=== PATIENT | female | born 1995 | race African-American/Black ===

== ENCOUNTER 2016-12-03 09:32 | Emergency (ER) | payer SELFPAY ==
[~2016-12-03] VITALS: Ht 157.5 cm; Wt 46.7 kg
[2016-12-03] MEDS ORDERED: Famotidine 20 MG/ 2ML VIAL IVP ONE (10:30)
[2016-12-03 10:51] LABS: BASOPHILS % (AUTO) 0.7 % (0.0-2.0); EOSINOPHILS % (AUTO) 0.2 % (0.0-3.0); LYMPHOCYTES % (AUTO) 8.6 % (20.0-45.0); MEAN CORPUSCULAR HEMOGLOBIN 30.2 PG (27.0-31.0); MEAN CORPUSCULAR HGB CONC 35.4 G/DL (32.0-36.0); MEAN CORPUSCULAR VOLUME 85 FL (80-99); MONOCYTES % (AUTO) 12.3 % (1.0-10.0); NEUTROPHILS % (AUTO) 78.2 % (45.0-75.0); PLATELET COUNT 224 K/UL (150-450); RED BLOOD COUNT 4.09 M/UL (4.20-5.40); RED CELL DISTRIBUTION WIDTH 11.4 % (11.6-14.8); WHITE BLOOD COUNT 4.6 K/UL (4.8-10.8)
[2016-12-03 10:54] LABS: APPEARANCE,URINE SLIGHTLY CLOUDY; KETONES,URINE 4+ (NEGATIVE); LEUKOCYTE ESTERASE ,URINE NEGATIVE (NEGATIVE); NITRITE,URINE NEGATIVE (NEGATIVE); PH,URINE 6 (4.5-8.0); PROTEIN,URINE 2+ (NEGATIVE); UROBILINOGEN,URINE NORMAL MG/DL (0.0-1.0)
[2016-12-03 10:58] LABS: BACTERIA,URINE FEW /HPF; SQUAMOUS EPITHELIAL CELL,UR MANY /LPF (NONE/OCC)
[2016-12-03 10:59] LABS: ALANINE AMINOTRANSFERASE 96 U/L (3-33); ALBUMIN/GLOBULIN RATIO 1.5 (1.0-2.7); ANION GAP 17 (5-15); ASPARTATE AMINO TRANSFERASE 70 U/L (5-40); CALCIUM 9.6 mg/dL (8.6-10.2); CARBON DIOXIDE 23 mEQ/L (20-30); CHLORIDE 94 mEQ/L (98-107); CREATININE 0.5 mg/dL (0.5-0.9); GLOMERULAR FILTRATION RATE > 60 mL/min (>60); HEMOLYSIS 3; LIPASE 17 U/L (< 60); MUCUS,URINE MODERATE /LPF (NONE/OCC); POTASSIUM 3.2 mEQ/L (3.4-4.9); SODIUM 134 mEQ/L (135-145); TOTAL PROTEIN 7.2 g/dL (6.6-8.7)
--- NOTE | 2016-12-03 11:45 | Emergency Room Report ---
History of Present Illness General Chief Complaint: Nausea, Vomiting, and Diarrhea Source: Patient Present Illness HPI 21YOF ~9 weeks by LMP presents with nausea/vomiting and abd pain. Denies vaginal cramping, bleeding. Denies diarrhea, fever/chills, sick contacts , urinary complaints. Previous spontaneous "Early on." Patient had sono 2 days ago, was "normal." Was given vitamin B6 at the time for nausea but states it made her vomit Allergies: Coded Allergies: No Known Allergies (Unverified , 12/03/16) Patient History Past Medical History: none Past Surgical History: none Pertinent Family History: none Social History: Denies: alcohol use, drug use, smoking Last Menstrual Period: 09/26/16 Now: Yes - 9 weeks : 2 Para: 0 Immunizations: UTD Reviewed Nursing Documentation: PMH: Agreed, PSxH: Agreed Nursing Documentation-PMH Past Medical History: No Stated History Review of Systems All Other Systems: negative except mentioned in HPI Physical Exam Vital Signs Date Time Temp Pulse Resp B/P Pulse Ox O2 Delivery O2 Flow Rate FiO2 12/03/16 09:49 97.9 97 16 104/59 98 Room Air Sp02 EP Interpretation: reviewed, normal General Appearance: normal inspection, well appearing, no apparent distress, alert, GCS 15, non-toxic, other - laughing with partner bedside Head: normocephalic, atraumatic Eyes: bilateral eye EOMI, bilateral eye PERRL ENT: normal ENT inspection, hearing grossly normal, normal voice Neck: normal inspection, full range of motion, supple, no bony tend Respiratory: normal inspection, lungs clear, normal breath sounds, no respiratory distress, no retraction, no wheezing Cardiovascular #1: regular rate, rhythm, no edema Gastrointestinal: normal inspection, normal bowel sounds, non tender, soft, no guarding, no hernia Genitourinary: no CVA tenderness Musculoskeletal: normal inspection, back normal, normal range of motion, Luis' s Sign negative Neurologic: normal inspection, alert, responsive, speech normal Psychiatric: normal inspection Skin: normal inspection Lymphatic: normal inspection Medical Decision Making Diagnostic Impression: Primary Impression: Nausea, vomiting, and diarrhea Additional Impressions: Marijuana abuse Qualified Codes: Z3A.09 - 9 weeks gestation of ER Course Nausea/vomiting/pain better after treatment VSS. Afebrile. No focal abd/pelvic ttp on serial exam Labs: No leuks. H&h stable. Urine preg positive Mild hypoK - advised to eat potassium rich foods today Utox + for marijuana - advised TO STOP smoking MJ while Advised OB followup as scheduled Last Vital Signs Date Time Temp Pulse Resp B/P Pulse Ox O2 Delivery O2 Flow Rate FiO2 12/03/16 09:49 97.9 97 16 104/59 98 Room Air Status: improved Disposition: HOME, SELF-CARE Referrals: NON PHYSICIAN (PCP) LUCRECIA HENRY M.D. December 03, 2016 11:45
[2016-12-03 12:08] VITALS: BP 110/62
[2016-12-03 12:10] VITALS: BP 110/62
== END 2016-12-03 12:10 | disposition home or self-care (01) ==
LOC: EMR 11:05
DX: O26.891 Other specified pregnancy related conditions, first trimester (principal); R11.2 Nausea with vomiting, unspecified; R19.7 Diarrhea, unspecified; F12.10 Cannabis abuse, uncomplicated; Z3A.09 9 weeks gestation of pregnancy; E87.6 Hypokalemia; R10.9 Unspecified abdominal pain
CPT/HCPCS: 36415; 80053; 80300; 81003; 81025; 83690; 85025; 96360; 96374; 96375; 99284; J2405; S0028

== ENCOUNTER 2016-12-26 22:04 | Emergency (ER) | payer SELFPAY ==
[~2016-12-26] VITALS: Ht 160 cm; Wt 46.7 kg
[2016-12-26] MEDS ORDERED: PRENATAL VITAM1 EACH PO (22:15)
[2016-12-26 22:58] LABS: APPEARANCE,URINE CLEAR; KETONES,URINE NEGATIVE (NEGATIVE); LEUKOCYTE ESTERASE ,URINE NEGATIVE (NEGATIVE); NITRITE,URINE NEGATIVE (NEGATIVE); PH,URINE 6 (4.5-8.0); PROTEIN,URINE NEGATIVE (NEGATIVE); UROBILINOGEN,URINE NORMAL MG/DL (0.0-1.0)
[2016-12-26 23:02] LABS: BASOPHILS % (AUTO) 0.7 % (0.0-2.0); EOSINOPHILS % (AUTO) 1.7 % (0.0-3.0); LYMPHOCYTES % (AUTO) 25.2 % (20.0-45.0); MEAN CORPUSCULAR HEMOGLOBIN 32.4 PG (27.0-31.0); MEAN CORPUSCULAR HGB CONC 37.1 G/DL (32.0-36.0); MEAN CORPUSCULAR VOLUME 87 FL (80-99); MEAN PLATELET VOLUME 8.1 FL (6.5-10.1); MONOCYTES % (AUTO) 5.7 % (1.0-10.0); NEUTROPHILS % (AUTO) 66.7 % (45.0-75.0); PLATELET COUNT 186 K/UL (150-450); RED CELL DISTRIBUTION WIDTH 12.2 % (11.6-14.8); WHITE BLOOD COUNT 8.7 K/UL (4.8-10.8)
[2016-12-26 23:09] LABS: SQUAMOUS EPITHELIAL CELL,UR OCCASIONAL /LPF (NONE/OCC); WBC,URINE 0-2 /HPF (0 - 2)
[2016-12-26 23:23] LABS: ALANINE AMINOTRANSFERASE 72 U/L (3-33); ALBUMIN/GLOBULIN RATIO 1.5 (1.0-2.7); ANION GAP 18 (5-15); ASPARTATE AMINO TRANSFERASE 42 U/L (5-40); CALCIUM 9.7 mg/dL (8.6-10.2); CARBON DIOXIDE 21 mEQ/L (20-30); CHLORIDE 97 mEQ/L (98-107); CREATININE 0.4 mg/dL (0.5-0.9); GLOMERULAR FILTRATION RATE > 60 mL/min (>60); HEMOLYSIS 5; LIPASE 36 U/L (< 60); POTASSIUM 3.7 mEQ/L (3.4-4.9); SODIUM 136 mEQ/L (135-145)
--- NOTE | 2016-12-26 23:47 | Emergency Room Report ---
History of Present Illness General Chief Complaint: Vaginal Source: Patient Present Illness HPI Patient is 12 weeks . Vag bleed tonight. Passed one clot. No tissue. No fevers. No dysuria. No dizziness. . No pain, NVD. No cough, URI, chest pain, extremity pain, DRAKE, rashes. She does not know her blood type. Allergies: Coded Allergies: No Known Allergies (Unverified , 12/03/16) Patient History Past Medical History: see triage record Social History: Denies: alcohol use, drug use, smoking Social History Narrative security director Last Menstrual Period: Sep Reviewed Nursing Documentation: PMH: Agreed, PSxH: Agreed Nursing Documentation-PMH Past Medical History: No Stated History Review of Systems All Other Systems: negative except mentioned in HPI Physical Exam Vital Signs Date Time Temp Pulse Resp B/P Pulse Ox O2 Delivery O2 Flow Rate FiO2 12/26/16 22:09 98.2 68 18 122/77 99 Room Air Sp02 EP Interpretation: reviewed, normal General Appearance: well appearing, no apparent distress, GCS 15 Head: normocephalic Eyes: bilateral eye PERRL, bilateral eye normal inspection ENT: moist mucus membranes Neck: supple Respiratory: lungs clear, normal breath sounds Cardiovascular #1: regular rate, rhythm Cardiovascular #2: 2+ radial (R) Gastrointestinal: normal inspection, normal bowel sounds, non tender, no mass, non-distended Genitourinary: no CVA tenderness, deferred - for U/S Musculoskeletal: back normal, gait/station normal, normal range of motion Neurologic: alert, oriented x3, grossly normal Psychiatric: mood/affect normal Skin: normal inspection, warm/dry Medical Decision Making Diagnostic Impression: Primary Impression: Vaginal bleeding Additional Impression: 12 weeks gestation of ER Course The patient is 12 weeks presents with vaginal bleeding. She passed a clot material in the picture that she shows does not look like tissue. Differential includes miscarriage, ectopic, threatened miscarriage, UTI amongst others. That she doesn't have pain and there is no ongoing bleeding as the risk of miscarriage at this time less likely. However she needs to be evaluated with labs including type and Rh, ultrasound a urinalysis. She was treated IV hydration. Blood type O+ Ultrasound was she is 12 weeks 3 days heart rate 160 and possible small fibroid. These results were discussed with patient. Also her beta hCG was high. Discussed risk of miscarriage with patient (although encouraging with heart beat ). Patient stable for outpatient observation and treatment. Laboratory Tests Test 12/26/16 22:15 12/26/16 22:21 Urine Color Pale yellow Urine Appearance Clear Urine pH 6 (4.5-8.0) Urine Specific [place] 1.015 (1.005-1.035) Urine Protein Negative (NEGATIVE) Urine Glucose (UA) Negative (NEGATIVE) Urine Ketones Negative (NEGATIVE) Urine Occult Blood 5+ (NEGATIVE) H Urine Nitrite Negative (NEGATIVE) Urine Bilirubin Negative (NEGATIVE) Urine Urobilinogen Normal MG/DL (0.0-1.0) Urine Leukocyte Esterase Negative (NEGATIVE) Urine RBC 2-4 /HPF (0 - 2) H Urine WBC 0-2 /HPF (0 - 2) Urine Squamous Epithelial Cells Occasional /LPF Urine Bacteria None /HPF (NONE) White Blood Count 8.7 K/UL (4.8-10.8) Red Blood Count 3.60 M/UL (4.20-5.40) L Hemoglobin 11.7 G/DL (12.0-16.0) L Hematocrit 31.4 % (37.0-47.0) L Mean Corpuscular Volume 87 FL (80-99) Mean Corpuscular Hemoglobin 32.4 PG (27.0-31.0) H Mean Corpuscular Hemoglobin Concent 37.1 G/DL (32.0-36.0) H Red Cell Distribution Width 12.2 % (11.6-14.8) Platelet Count 186 K/UL (150-450) Mean Platelet Volume 8.1 FL (6.5-10.1) Neutrophils (%) (Auto) 66.7 % (45.0-75.0) Lymphocytes (%) (Auto) 25.2 % (20.0-45.0) Monocytes (%) (Auto) 5.7 % (1.0-10.0) Eosinophils (%) (Auto) 1.7 % (0.0-3.0) Basophils (%) (Auto) 0.7 % (0.0-2.0) Sodium Level 136 mEQ/L (135-145) Potassium Level 3.7 mEQ/L (3.4-4.9) Chloride Level 97 mEQ/L (98-107) L Carbon Dioxide Level 21 mEQ/L (20-30) Anion Gap 18 (5-15) H Blood Urea Nitrogen 7 mg/dL (7-23) Creatinine 0.4 mg/dL (0.5-0.9) L Estimate Glomerular Filtration Rate > 60 mL/min (>60) Glucose Level 94 mg/dL (74-106) Calcium Level 9.7 mg/dL (8.6-10.2) Total Bilirubin < 0.2 mg/dL (0.0-1.2) Aspartate Amino Transferase (AST) 42 U/L (5-40) H Alanine Aminotransferase (ALT) 72 U/L (3-33) H Alkaline Phosphatase 55 U/L (35-104) Total Protein 7.0 g/dL (6.6-8.7) Albumin 4.2 g/dL (3.5-5.2) Globulin 2.8 g/dL Albumin/Globulin Ratio 1.5 (1.0-2.7) Lipase 36 U/L (< 60) Human Chorionic Gonadotropin, Quant 89310 mIU/mL CT/MRI/US Diagnostic Results CT/MRI/US Diagnostic Results : Imaging Test Ordered: pelvic u/s Impression 12 weeks, HR 160, small fibroid Last Vital Signs Date Time Temp Pulse Resp B/P Pulse Ox O2 Delivery O2 Flow Rate FiO2 12/27/16 00:50 98.2 80 18 124/81 99 Room Air Status: improved Disposition: HOME, SELF-CARE Condition: Improved Referrals: NOT CHOSEN GONZALEZ/,REFERRING (PCP) Tej Craven M.D. December 26, 2016 23:47
[2016-12-27 00:47] VITALS: BP 124/81
[2016-12-27 00:50] VITALS: BP 124/81
--- NOTE | 2016-12-29 09:18 | Diagnostic Imaging Report ---
Indication:Vaginal bleeding. . Technique: Grayscale and duplex Doppler imaging of the pelvis performed utilizing a transabdominal scan and endovaginal scan. OB ultrasound performed Comparison: None Findings: Due to fetus positioning and movement, the scan was limited especially with regard to assessment of anatomy. Single living intrauterine is demonstrated. Gestational age is estimated at 12 weeks 1 day based on crown-rump length. measurements were not obtained. Amniotic fluid is appropriate for gestational age and assessed subjectively. There is anterior uterine fibroid versus contraction. Impression: Very limited exam demonstrating approximately 12 week single living intrauterine . A followup ultrasound is recommended. Note: A negative ultrasound evaluation does not insure well-being or positive outcome for the . monitoring including a nonstress test may be needed and clinical evaluation by SOCIAL MEDIA STRATEGIST is highly recommended.
== END 2016-12-27 00:51 | disposition home or self-care (01) ==
LOC: EMR 22:23
DX: O20.9 Hemorrhage in early pregnancy, unspecified (principal); Z3A.12 12 weeks gestation of pregnancy
CPT/HCPCS: 36415; 76801; 76830; 80053; 81003; 83690; 84702; 85025; 86900; 86901; 96360; 96361

== ENCOUNTER 2017-09-20 12:35 | Emergency (ER) | payer SELFPAY ==
[~2017-09-20] VITALS: Ht 160 cm; Wt 54.4 kg
[~2017-09-20 12:35] MED LIST: PRENATAL VITAM1 EACH PO
[2017-09-20 12:48] VITALS: BP 121/72
[2017-09-20 13:12] LABS: APPEARANCE,URINE CLOUDY; BILIRUBIN, URINE NEGATIVE (NEGATIVE); GLUCOSE, URINE (UA) NEGATIVE (NEGATIVE); KETONES,URINE 1+ (NEGATIVE); LEUKOCYTE ESTERASE ,URINE 3+ (NEGATIVE); NITRITE,URINE NEGATIVE (NEGATIVE); PH,URINE 6 (4.5-8.0); PROTEIN,URINE 2+ (NEGATIVE); UROBILINOGEN,URINE 1 MG/DL (0.0-1.0)
[2017-09-20 13:17] LABS: COLOR,URINE YELLOW
[2017-09-20] MEDS ORDERED: Phenazopyridine 200mg tab ORAL ONE (13:30)
--- NOTE | 2017-09-20 13:59 | Emergency Room Report ---
History of Present Illness General Chief Complaint: Female Urogenital Problems Source: Patient Present Illness HPI 21-year-old female presents to the emergency department complaining of urinary frequency & dysuria x 5 days and intermittent urinary incontinence progressive x3 days. Patient denies fevers, chills, low back pain or abdominal tenderness. Patient reports she gave 4 months ago via with epidural. Denies symptoms prior to onset of her symptoms 5 days ago. describes intermittent incontinence with some urine, exacerbated with laughing/coughing/ straining. Patient denies numbness, tingling, lower extremity weakness or back pain. Denies night sweats or history of neoplastic disease. Denies constipation or diarrhea. denies previous Urinary problems other than UTI in the past. Denies . Denies breast feeding and denies vaginal discharge or lesions. Denies CP, Palpitations, LOC, AMS, dizziness, Changes in Vision, Sensation, paresthesias, or a sudden severe headache Allergies: Coded Allergies: No Known Allergies (Unverified , 12/03/16) Patient History Past Medical History: see triage record Past Surgical History: none Pertinent Family History: none Now: No Reviewed Nursing Documentation: PMH: Agreed, PSxH: Agreed Nursing Documentation-PMH Past Medical History: No Stated History Review of Systems All Other Systems: negative except mentioned in HPI Physical Exam Vital Signs Date Time Temp Pulse Resp B/P (MAP) Pulse Ox O2 Delivery O2 Flow Rate FiO2 09/20/17 12:38 98.2 60 17 121/72 96 Room Air 98.2 Sp02 EP Interpretation: reviewed, normal General Appearance: no apparent distress, alert, GCS 15, non-toxic Head: normocephalic, atraumatic ENT: hearing grossly normal, normal voice Neck: full range of motion Respiratory: lungs clear, normal breath sounds, speaking full sentences Cardiovascular #1: regular rate, rhythm Gastrointestinal: normal bowel sounds, non tender, soft Rectal: deferred Genitourinary: normal inspection, no CVA tenderness Musculoskeletal: back normal, gait/station normal, normal range of motion, non- tender Neurologic: alert, oriented x3, responsive, motor strength/tone normal, sensory intact, speech normal, grossly normal Psychiatric: judgement/insight normal Skin: normal color, no rash, warm/dry, well hydrated Medical Decision Making PA Attestation Dr. Hart is my supervising Physician whom patient management has been discussed with. Diagnostic Impression: Primary Impression: Urinary tract infection Qualified Codes: N30.01 - Acute cystitis with hematuria Additional Impression: Functional urinary incontinence ER Course 21-year-old female presents to the emergency department complaining of urinary frequency & dysuria x 5 days and intermittent urinary incontinence progressive x3 days. Patient denies fevers, chills, low back pain or abdominal tenderness. Patient reports she gave 4 months ago via with epidural. Denies symptoms prior to onset of her symptoms 5 days ago. describes intermittent incontinence with some urine, exacerbated with laughing/coughing/ straining. Patient denies numbness, tingling, lower extremity weakness or back pain. Denies night sweats or history of neoplastic disease. Denies constipation or diarrhea. denies previous Urinary problems other than UTI in the past. Denies . Denies breast feeding and denies vaginal discharge or lesions. Denies CP, Palpitations, LOC, AMS, dizziness, Changes in Vision, Sensation, paresthesias, or a sudden severe headache Ddx considered but are not limited to UTi , Pyelo, STI, Stone, Cystitis Vital signs: are WNL, pt. is afebrile H&PE are most consistent with UTI ORDERS: - UA labs are attached: Consistent with UTI: presence of bacteria with TNTC WBC' s and elevated Leuko-est. ED INTERVENTIONS: -Pyridium PO ---Discussed with patient that she will be treated with oral antibiotics for UTI and some Pyridium. Discussed with patient that it is important to followup with a urologist as she may require further evaluation or incontinence. d/w pt. to return promptly with worsening or new symptoms. DISCHARGE: At this time pt. is stable for d/c to home. Will provide printed patient care instructions, and any necessary prescriptions. Care plan and follow up instructions have been discussed with the patient prior to discharge. Labs Test 09/20/17 12:05 Urine Color Yellow Urine Appearance Cloudy Urine pH 6 (4.5-8.0) Urine Specific [place] 1.020 (1.005-1.035) Urine Protein 2+ (NEGATIVE) Urine Glucose (UA) Negative (NEGATIVE) Urine Ketones 1+ (NEGATIVE) Urine Occult Blood 4+ (NEGATIVE) Urine Nitrite Negative (NEGATIVE) Urine Bilirubin Negative (NEGATIVE) Urine Urobilinogen 1 MG/DL (0.0-1.0) Urine Leukocyte Esterase 3+ (NEGATIVE) Urine RBC 5-10 /HPF (0 - 2) Urine WBC Tntc /HPF (0 - 2) Urine Squamous Epithelial Cells Many /LPF (NONE/OCC) Urine Bacteria Few /HPF (NONE) Last Vital Signs Date Time Temp Pulse Resp B/P (MAP) Pulse Ox O2 Delivery O2 Flow Rate FiO2 09/20/17 12:48 98.2 80 16 121/72 98 Room Air 98.2 Disposition: HOME, SELF-CARE Condition: Stable Scripts Phenazopyridine Hcl* (PYRIDIUM*) 200 Mg Tablet 200 MG ORAL THREE TIMES A DAY for 3 Days, #9 TAB 0 Refills Prov: My Montoya 09/20/17 Nitrofurantoin Monohyd/M-Cryst* (MACROBID 100 MG*) 100 Mg Capsule 100 MG ORAL EVERY 12 HOURS for 5 Days, #10 CAP Prov: My Montoya 09/20/17 Referrals: NON PHYSICIAN (PCP) Patient Instructions: Urinary Tract Infection Additional Instructions: Take medications as directed. Pyridium will cause your urine to change color (Red/[place]), this is a normal side effect of the medication. Follow up with a UROLOGIST for incontinence evaluation/testing in 3-5 days , --Please review list of primary care clinics , if you do not already have a primary care provider to provide a referral. Return sooner to ED if new symptoms occur, or current symptoms become worse. - Please note that this Emergency Department Report was dictated using [employer] gr[employer] technology software, occasionally this can lead to erroneous entry secondary to interpretation by the dictation equipment. My Montoya Sep 20, 2017 13:59
[2017-09-20] MEDS ORDERED: PHENAZOPYRIDIN200 MG ORAL (14:00)
[2017-09-20] MEDS ORDERED: NITROFURANTOIN100 M2 ORAL (14:00)
[2017-09-20 14:15] VITALS: BP 121/72
== END 2017-09-20 14:23 | disposition home or self-care (01) ==
LOC: EMR 13:10
DX: N30.01 Acute cystitis with hematuria (principal); R32 Unspecified urinary incontinence
CPT/HCPCS: 81003; 87086; 99284

== ENCOUNTER → 2018-08-18 | Emergency (ER) | payer SELFPAY ==
[~2018-08-18] VITALS: Ht 160 cm; Wt 44.5 kg
[~2018-08-18] MED LIST changes: +NITROFURANTOIN100 M2 ORAL; +PHENAZOPYRIDIN200 MG ORAL; +TYLENOL EXTRA500 MG ORAL; +ZOFRAN4 M3 ORAL
[2018-08-18 17:36] VITALS: BP 119/87
--- NOTE | 2018-08-18 17:45 | NUR ---
ED Nurse Note: patient walked into the ED started having n/vd since 2am last night, patient had fast food yesterday around -2330. since then pt has been nauseated/vomiting. vomiting plastic bag provided,
--- NOTE | 2018-08-18 17:58 | Emergency Room Report ---
History of Present Illness General Chief Complaint: Nausea, Vomiting, and Diarrhea Source: Patient Present Illness HPI 22-year-old female patient presents the ER complaining of vomiting and diarrhea for the past day. Reports symptoms began after eating at [employer]. Denies blood in vomit or stool. Denies constipation. Denies recent travel outside the country. Denies recent antibiotic use. Denies contacts with similar symptoms. Denies fever, chest pain, shortness of breath. Reports mild abdominal discomfort secondary to the vomiting diarrhea. Denies coffee-ground emesis. Allergies: Coded Allergies: No Known Allergies (Unverified , 12/03/16) Patient History Past Medical History: see triage record Last Menstrual Period: last month-iud Now: No Reviewed Nursing Documentation: PMH: Agreed; PSxH: Agreed Nursing Documentation-PMH Past Medical History: No Stated History Review of Systems All Other Systems: negative except mentioned in HPI Physical Exam Vital Signs Date Time Temp Pulse Resp B/P (MAP) Pulse Ox O2 Delivery O2 Flow Rate FiO2 08/18/18 17:36 99.1 73 18 119/87 98 Room Air Sp02 EP Interpretation: reviewed, normal General Appearance: well appearing, no apparent distress, alert, GCS 15, non- toxic Head: normocephalic, atraumatic Eyes: bilateral eye normal inspection, bilateral eye PERRL ENT: hearing grossly normal, normal pharynx, no angioedema, normal voice, uvula midline, moist mucus membranes Neck: full range of motion Respiratory: lungs clear, normal breath sounds, no rhonchi, no respiratory distress, no accessory muscle use, no wheezing, speaking full sentences Cardiovascular #1: regular rate, rhythm, no edema Gastrointestinal: normal bowel sounds, non tender, soft, no mass, non-distended , no guarding, no rebound, other - negatie Kendrick, negative Rovsing Genitourinary: no CVA tenderness Musculoskeletal: back normal, digits/nails normal, gait/station normal, normal range of motion, non-tender Neurologic: alert, oriented x3, responsive, motor strength/tone normal, sensory intact Skin: no rash Medical Decision Making PA Attestation Dr. Craven is my supervising Physician whom patient management has been discussed with. Diagnostic Impression: Primary Impression: Nausea, vomiting, and diarrhea ER Course Pt. presents to the ED c/o vomiting and diarrhea s/p eating [employer]. Ddx considered but are not limited to viral syndrome, gastritis, enteritis, food poisoning, GERD, reflux. Vital signs: are WNL, pt. is afebrile at discharge. ordered zofran. ED COURSE: Physical exam benign, no abdominal TTP, negative Kendrick sign, negative Rovsing, negative obturator, low suspicion for appendicitis or cholecystitis, does not require labs or imaging at this time. No fever, no blood in stool, no recent travel or hospitalizations, does not require abx treatment at this time. No signs of dehydration, moist mucus membranes, cap refill <2seconds, normal skin turgor. Patient history consistent with likely food poisoning, will provide Zofran in the ER. . Patient instructed on BRAT diet. Patient instructed to remain hydrated, drink plenty of fluids. Patient questions asked and answered. Patient states understanding and agreement to treatment plan. ER precautions given, return to ER for new or worsening of symptoms. Patient able to tolerate p.o. fluids prior to discharge. Ok for outpatient followup and treatment. DISCHARGE: Rx provided for Tylenol for pain symptoms Rx provided for zofran At this time pt. is stable for d/c to home. Patient is resting comfortably, laughing, in no acute distress, nontoxic appearing. Will provide printed patient care instructions, and any necessary prescriptions. Care plan and follow up instructions have been discussed with the patient prior to discharge. Patient instructed to followup with PCP in 3-5 days. Patient reports understanding and agreement to treatment plan. Patient questions asked and answered. ER precautions given; patient instructed to return to ER for new or worsening of symptoms including but not limited to fever, intractable vomiting, severe abdominal pain, blood in stool. - Please note that this Emergency Department Report was dictated using [employer] Systems[employer] breeder technology software, occasionally this can lead to erroneous entry secondary to interpretation by the dictation equipment. Last Vital Signs Date Time Temp Pulse Resp B/P (MAP) Pulse Ox O2 Delivery O2 Flow Rate FiO2 08/18/18 17:36 99.1 73 18 119/87 98 Room Air Status: improved Disposition: HOME, SELF-CARE Condition: Stable Scripts Acetaminophen* (TYLENOL EXTRA STRENGTH*) 500 Mg Tablet 500 MG ORAL Q8H PRN for Prn Headache/Temp > 101, #30 TAB 0 Refills Prov: Pop Hilton 08/18/18 Ondansetron* (ZOFRAN*) 4 Mg Tablet 4 MG ORAL Q6H PRN for Nausea & Vomiting, #8 TAB Prov: Pop Hilton 08/18/18 Patient Instructions: Diarrhea, Adult, [id number], Food Poisoning, Easy-to- Read, Nausea and Vomiting, Adult, [id number] Additional Instructions: Followup with primary care provider in 3 -5 days. Avoid spicy foods, avoid dairy foods. BRAT diet: bananas, rice, apple sauce, toast. Consider Immodium for diarrhea and Tylenol for pain symptoms. Take medications as directed. Patient questions asked and answered. ER precautions given, patient instructed to return to ER immediately for any new or worsening of symptoms. Pop Hilton Aug 18, 2018 17:58
[2018-08-18 19:24] VITALS: BP 119/87
--- NOTE | 2018-08-18 19:28 | NUR ---
ED Nurse Note: Patient is being discharged, cleared by JUAN PABLO Wright . Discharge instructions/paper/prescription given, explained, patient verbalized understanding, received signature on the paper. ID band removed. Patient ambulated out of ED with steady gait with all belongings.
== END | disposition home or self-care (01) ==
LOC: EMR 17:45
DX: R11.2 Nausea with vomiting, unspecified (principal); R19.7 Diarrhea, unspecified
CPT/HCPCS: 99282

== ENCOUNTER 2020-10-14 01:42 | Emergency (ER) | payer OTHER ==
[~2020-10-14] VITALS: Ht 160 cm; Wt 45.4 kg
--- NOTE | 2020-10-14 01:56 | NUR ---
pt from home c/o of generalized abdominal pain since 11 am, diarrhea x1, pressure w/urination, and headache, 2016 no other health hx, aox4, ambulatory, lmp 09/30/20, placed in RM 2
[2020-10-14 02:00] VITALS: BP 109/64
--- NOTE | 2020-10-14 02:00 | Emergency Room Report ---
History of Present Illness General Chief Complaint: Abdominal Pain Source: Patient Present Illness HPI 24-year-old female with no prior medical history presents emergency department with chief complaint of diffuse abdominal pain, nausea and diarrhea since waking up at 8 AM. She states that the diarrhea is nonbloody. Also endorses dysuria. Last p.o. intake was this morning 11 AM. Last bowel movement was a loose stool this afternoon. She denies any sick contacts, fever, chills, vomiting, hematemesis, melena, dyschezia, hematuria, chest pain, shortness of breath, hemoptysis, vaginal discharge/bleeding or any other symptoms. Denies any recent travel. She admits to remote history of sexually transmitted infection in 2015 that was fully treated with antibiotics. She is currently not concerned for any sexually transmitted infection. The patient's symptoms were gradual onset, severity was moderate, duration since 1 day. Quality: Aching Past medical history: Denies Past surgical history: Smoking: Denies Alcohol use: Denies Drug use: Marijuana Review of systems: CONST: No fevers or chills, No night sweats PULMONARY: No productive cough, No shortness of breath CARDIAC: No chest pain, No palpitations GI: No vomiting, positive diarrhea , No melena_or_BRBPR : Positive dysuria, No hematuria, No discharge NEURO: No new_focal_weakness_or_numbness, No confusion, No vision changes 14 point Review of Systems is otherwise negative except per HPI Physical Exam: GENERAL: Awake_alert_ nontoxic, no acute distress Spo2 100% on RA -normal EYES: Extraocular muscles are intact. Conjunctivae clear. Lids without swelling ENT: External nose and ear normal_in_appearance. Oropharynx clear. Head_atraumatic, Moist_oral_mucosa NECK: No JVD. No meningismus. No thyromegaly. Supple. Trachea midline RESP: Normal respiratory effort. Symmetric rise. No stridor. Clear_to_auscultation_No_rales_No_wheezes CARDIAC: Regular rate and regular rhytm. No_significant pedal edema. ABDOMEN: Soft. Nondistended. Nontender_No_rebound_or_guarding. Negative Kendrick sign. Negative Rovsing sign. No CVA tenderness to palpation. No mass MSK: Normal muscle tone, without rigidity. Extremities without asymmetric deformity or swelling. SKIN: Warm and dry. No visible cyanosis or pallor. No petechiae NEUROLOGIC: Alert, oriented x3. Motor_and_sensation_grossly_intact. No truncal ataxia. Gait_normal Psych: Normal mood and affect, normal judgment and insight - COORDINATION OF CARE Case was discussed with: Patient Any labs and imaging that were ordered were interpreted as part of the medical decision making: Medical Decision Making/Plan: Differential diagnosis includes cholecystitis, choledocholithiasis, hepatitis, small bowel obstruction, volvulus, AAA, pancreatitis, atypical appendicitis, gastroparesis, gastritis, peptic ulcer disease, among others. Patient is well appearing with stable vital signs. Abdominal exam is non peritoneal with no guarding or rebound. Negative Kendrick sign. Negative Rovsing's. No CVA tenderness to palpation. Labs show leukocytosis of 21.6. Bands of 5. CMP shows on acute abnormalities. Lactate WNL> COVID negative. UA shows ++Ketones consistent with dehydration. CT abd/Pelvis shows enteritis. Patient is afebrile, without any significant tenderness in the RUQ, and a negative [place] sign. The patients presentation does not appear to be consistent with acute cholecystitis and thus definitive imaging to rule it out was not pursued. The patient denies any bloody stool and has no pain out of proportion to exam, and no significant risk factors for mesenteric ischemia such as atrial fibrillation or severe PAD/PVD (peripheral arterial / vascular disease), thus definitive workup to rule out mesenteric ischemia was not pursued. ED intervention included fluids, morphine, Zofran, Vanco, Zosyn. Blood cultures and urine cultures are pending. The patient has been stabilized to the best of this emergency department's capabilities. Her insurance is capitated to an outside hospital given the patient's medical needs, appropriate facilities for transfer were discussed and the decision has been made to transfer this patient to [facility]. The receiving facility has the capacity and capabilities to provide care for the patient. I spoke with Dr Baer who accepted the patient in transfer. The patient has been informed and updated of their current clinical status. The patient has given verbal consent for the transfer. The risks and benefits were explained and the patient verbalizes their understanding. The patient will be transported by S Allergies: Coded Allergies: No Known Allergies (Unverified , 12/03/16) COVID-19 Screening Contact w/high risk pt: No Experienced COVID-19 symptoms?: No COVID-19 Testing performed FEED RESEARCH AIDE: No Patient History Last Menstrual Period: 09/30/20 Now: No : 3 Para: 1 Nursing Documentation-PMH Hx Cardiac Problems: No Hx Hypertension: No Hx Pacemaker: No Hx Asthma: No Hx COPD: No Hx Cancer: No Hx Gastrointestinal Problems: No Hx Dialysis: No History Of Psychiatric Problem: No Hx Neurological Problems: No Hx Cerebrovascular Accident: No Hx Seizures: No Physical Exam Vital Signs Date Time Temp Pulse Resp B/P (MAP) Pulse Ox O2 Delivery O2 Flow Rate FiO2 10/14/20 01:46 99.7 96 20 109/64 (79) 100 Room Air Sp02 EP Interpretation: reviewed, normal Medical Decision Making Diagnostic Impression: Primary Impression: Abdominal pain Additional Impressions: Dysuria Diarrhea Enteritis CT/MRI/US Diagnostic Results CT/MRI/US Diagnostic Results : Impression CT Abdomen and Pelvis With Intravenous Contrast CLINICAL HISTORY: PAIN TECHNIQUE: Axial computed tomography images of the abdomen and pelvis with intravenous contrast. One or more of the following dose reduction techniques were used: automated exposure control, adjustment of the mA and/or kV according to patient size, use of iterative reconstruction technique. CTDIvol: 3.3, DLP: 156 COMPARISON: No relevant prior studies available. FINDINGS: Artifacts: The study is at least moderately degraded by motion. Lung bases: Unremarkable. No mass. No consolidation. ABDOMEN: Liver: Unremarkable. No mass. Gallbladder and bile ducts: Unremarkable. No calcified stones. No ductal dilation. Pancreas: Unremarkable. No mass. No ductal dilation. Spleen: Unremarkable. No splenomegaly. Adrenals: Unremarkable. No mass. Kidneys and ureters: Unremarkable. No solid mass. No hydronephrosis. Stomach and bowel: Limited evaluation of the GI tract secondary to a paucity of intraperitoneal fat and the absence of enteric contrast. Negative for lower GI tract obstruction or pneumatosis. There are a few prominent fluid-filled segments of small bowel as well as liquid stool in the colon. No mucosal thickening. PELVIS: Appendix: No findings to suggest acute appendicitis. Bladder: Moderate distention of the urinary bladder. Reproductive: Unremarkable as visualized. ABDOMEN and PELVIS: Intraperitoneal space: Unremarkable. No free air. No significant fluid collection. Bones/joints: No acute fracture. No dislocation. Soft tissues: Unremarkable. Vasculature: Unremarkable. No abdominal aortic aneurysm. Lymph nodes: Unremarkable. No enlarged lymph nodes. IMPRESSION: Study significantly degraded by motion. Evaluation of the GI tract limited by paucity of intraperitoneal fat and absence of enteric contrast. Moderate distention of the urinary bladder. There are findings suggestive of acute enteritis. Dictated By: Syed Kenny DO Last Vital Signs Date Time Temp Pulse Resp B/P (MAP) Pulse Ox O2 Delivery O2 Flow Rate FiO2 10/14/20 01:46 99.7 96 20 109/64 (79) 100 Room Air Disposition: ADMITTED INPATIENT - [place] COMM Admit Decision Time: 02:37 Condition: Stable Scripts Ondansetron Odt* (ZOFRAN ODT*) 4 Mg Tab.rapdis 4 MG BC EVERY 6 HOURS PRN for Nausea & Vomiting, #10 TAB 0 Refills Prov: Ashley Swenson D.O. 10/14/20 Referrals: [facility],REFERRING (PCP) Ashley Swenson D.O. Oct 14, 2020 02:00
--- NOTE | 2020-10-14 02:05 | NUR ---
ED Nurse Note: Recieved pt walk in from home with c/o lower abdominal and left flank pain x 1 day, started as awakened this am with severe nausea, no emesis, and diarrhea x 2, pt has pain at 10/10 also with headache, pain in abd feels pressure like with mild urinary frequency and urgency, no cp, sob, or other s/s, pt urine collected and sent, labd drawn also, pt waiting to be seen by md before she will take meds.
[2020-10-14 02:08] LABS: APPEARANCE,URINE CLEAR; BILIRUBIN, URINE NEGATIVE (NEGATIVE); COLOR,URINE YELLOW; GLUCOSE, URINE (UA) NEGATIVE (NEGATIVE); KETONES,URINE 2+ (NEGATIVE); LEUKOCYTE ESTERASE ,URINE 1+ (NEGATIVE); NITRITE,URINE NEGATIVE (NEGATIVE); PH,URINE 7 (4.5-8.0); PROTEIN,URINE NEGATIVE (NEGATIVE); UROBILINOGEN,URINE 4 MG/DL (0.0-1.0)
[2020-10-14] MEDS ORDERED: ONDANSETRON ODT4 MG BC (02:11)
[2020-10-14] MEDS ORDERED: Acetaminophen 500mg (ES) tab ORAL ONE (02:15)
[2020-10-14] MEDS ORDERED: Dicyclomine HCl 10mg/5ml oral soln ORAL ONE (02:15)
[2020-10-14 02:20] LABS: HEMATOCRIT 36.5 % (37.0-47.0); HEMOGLOBIN 12.2 G/DL (12.0-16.0); MEAN CORPUSCULAR VOLUME 91 FL (80-99); PLATELET COUNT 199 K/UL (150-450); WHITE BLOOD COUNT 21.6 K/UL (4.8-10.8)
[2020-10-14] MEDS ORDERED: Vancomycin 1 GM in NS 275 ML IV ONE (02:30)
[2020-10-14] MEDS ORDERED: Piperacillin/Tazobactam 3.375 GM in NS 110 ML IVPB ONE (02:30)
[2020-10-14 02:41] LABS: ANION GAP 11 mmol/L (5-15); BLOOD UREA NITROGEN 9 mg/dL (7-18); CALCIUM 9.2 MG/DL (8.5-10.1); CARBON DIOXIDE 25 MMOL/L (21-32); CHLORIDE 103 MMOL/L (98-107); CREATININE 0.8 MG/DL (0.55-1.30); POTASSIUM 3.4 MMOL/L (3.5-5.1); SODIUM 139 MMOL/L (136-145)
[2020-10-14 02:45] LABS: ALANINE AMINOTRANSFERASE 37 U/L (12-78); ALBUMIN 3.5 G/DL (3.4-5.0); ALBUMIN/GLOBULIN RATIO 0.9 (1.0-2.7); ALKALINE PHOSPHATASE 66 U/L (46-116); ASPARTATE AMINO TRANSFERASE 35 U/L (15-37); BILIRUBIN,TOTAL 0.6 MG/DL (0.2-1.0)
[2020-10-14 02:47] LABS: CREATINE KINASE 96 U/L (26-308)
--- NOTE | 2020-10-14 03:10 | NUR ---
ED Nurse Note: Pt labs returned and new orders recieved, labs done and carried out, pt also c/o previous meds for pain non-effective and asking for more pain meds, pt also has more nausea, IV site patent with fluids infusing, V/S stable, will resume new orders and closely monitor pt also being prepared for hospital admission.
[2020-10-14] MEDS ORDERED: Morphine Sulfate 4mg/ml Inj (IV USE ONLY) IVP ONE ×2 (03:15→05:00)
--- NOTE | 2020-10-14 03:40 | NUR ---
ED Nurse Note: Pt taken to imaging via gurney, awake and alert, IV site patent, pt signed transfer forms, no s/s noted from IV antibiotics being given, will resume care when pt returns and continue to closely monitor.
[2020-10-14 04:05] VITALS: BP 112/68
--- NOTE | 2020-10-14 04:05 | NUR ---
ED Nurse Note: Pt returned from imaging, meds given for pain effective, second IV antibiotic started as ordered, pt v/s stable, no sob or labored breathing or any acute changes upon pt returning, will continue to closely monitor while waiting for pt results and disposition/transfer.
--- NOTE | 2020-10-14 04:37 | Diagnostic Imaging Report ---
EXAM: CT Abdomen and Pelvis With Intravenous Contrast CLINICAL HISTORY: PAIN TECHNIQUE: Axial computed tomography images of the abdomen and pelvis with intravenous contrast. One or more of the following dose reduction techniques were used: automated exposure control, adjustment of the mA and/or kV according to patient size, use of iterative reconstruction technique. CTDIvol: 3.3, DLP: 156 COMPARISON: No relevant prior studies available. FINDINGS: Artifacts: The study is at least moderately degraded by motion. Lung bases: Unremarkable. No mass. No consolidation. ABDOMEN: Liver: Unremarkable. No mass. Gallbladder and bile ducts: Unremarkable. No calcified stones. No ductal dilation. Pancreas: Unremarkable. No mass. No ductal dilation. Spleen: Unremarkable. No splenomegaly. Adrenals: Unremarkable. No mass. Kidneys and ureters: Unremarkable. No solid mass. No hydronephrosis. Stomach and bowel: Limited evaluation of the GI tract secondary to a paucity of intraperitoneal fat and the absence of enteric contrast. Negative for lower GI tract obstruction or pneumatosis. There are a few prominent fluid-filled segments of small bowel as well as liquid stool in the colon. No mucosal thickening. PELVIS: Appendix: No findings to suggest acute appendicitis. Bladder: Moderate distention of the urinary bladder. Reproductive: Unremarkable as visualized. ABDOMEN and PELVIS: Intraperitoneal space: Unremarkable. No free air. No significant fluid collection. Bones/joints: No acute fracture. No dislocation. Soft tissues: Unremarkable. Vasculature: Unremarkable. No abdominal aortic aneurysm. Lymph nodes: Unremarkable. No enlarged lymph nodes. IMPRESSION: Study significantly degraded by motion. Evaluation of the GI tract limited by paucity of intraperitoneal fat and absence of enteric contrast. Moderate distention of the urinary bladder. There are findings suggestive of acute enteritis.
[2020-10-14] MEDS ORDERED: Morphine Sulfate 2mg/ml Inj(IV/IM USE ONLY) ONE (04:53)
[2020-10-14 05:00] VITALS: BP_SYST 112; BP_SYST 130; BP_DIAS 62; BP_DIAS 68
--- NOTE | 2020-10-14 05:00 | NUR ---
ED Nurse Note: Placed call to [facility] at [phone], report given to melt house supervisor Marissa, pt being transferred by [facility], rig#[id number], report and pt belongings given to tower truck driver Wilton, pt is awake alert and oriented x 4, family at bedside and aware, pt has all belongings with her, IV site patent and pt mdicated for pain prior to leaving, nad noted during pt transport.
== END 2020-10-14 05:05 | disposition short-term general hospital (02) ==
LOC: EMR 01:53
DX: K52.9 Noninfective gastroenteritis and colitis, unspecified (principal); R10.9 Unspecified abdominal pain; R30.0 Dysuria; R19.7 Diarrhea, unspecified; D72.829 Elevated white blood cell count, unspecified
CPT/HCPCS: 36415; 74177; 80053; 81003; 81025; 82550; 83605; 83690; 84484; 85007; 85025; 87040; 96361; 96365; 96367; 96375; 96376; J2270; J2405; J2543; J3370; J7030; J7050; Q9965; Z7502; 99284